=== PATIENT | female | born 1955 | race Caucasian/White ===

== ENCOUNTER 2016-07-15 11:21 | Outpatient (CLI) | payer OTHER | END 2016-07-15 11:22 | disposition home or self-care (01) | DX: M25.561 Pain in right knee (principal) ==

== ENCOUNTER 2016-08-23 09:43 | Outpatient (CLI) | payer OTHER | END 2016-08-23 09:44 | disposition home or self-care (01) | DX: E11.65 Type 2 diabetes mellitus with hyperglycemia (principal); Z79.4 Long term (current) use of insulin; I10 Essential (primary) hypertension; E78.5 Hyperlipidemia, unspecified ==

== ENCOUNTER 2016-11-08 09:15 | Outpatient (CLI) | payer OTHER ==
[2016-11-08 21:10] LABS: HEMOGLOBIN A1C 0.93 g/dL
== END 2016-11-08 09:16 | disposition home or self-care (01) ==
LOC: LAB.S 09:15
PROVIDERS: ATTEND Nurse Practitioner
DX: E11.65 Type 2 diabetes mellitus with hyperglycemia (principal); Z79.4 Long term (current) use of insulin
CPT/HCPCS: 36415; 83036

== ENCOUNTER 2017-03-28 15:12 | Outpatient (CLI) | payer OTHER ==
[2017-03-29 12:31] LABS: HEMOGLOBIN A1C 0.73 g/dL
== END 2017-03-28 15:13 | disposition home or self-care (01) ==
LOC: LAB.S 15:12
PROVIDERS: ATTEND Nurse Practitioner Family
DX: E11.9 Type 2 diabetes mellitus without complications (principal)
CPT/HCPCS: 36415; 83036

== ENCOUNTER 2017-06-15 13:49 | Outpatient (CLI) | payer OTHER ==
--- NOTE | 2017-06-16 19:27 | XRAY Report ---
DATE OF SERVICE: 06/15/2017 TWO VIEW CHEST: 06/15/2017. CLINICAL INDICATION: Cough. FINDINGS: Frontal and lateral views of the chest demonstrate a normal cardiac silhouette. The lungs are clear. No effusion or pneumothorax is present. IMPRESSION: Normal chest. TD: 06/16/2017 09:58
== END 2017-06-15 13:50 | disposition home or self-care (01) ==
LOC: DI.S 13:49
PROVIDERS: ATTEND Nurse Practitioner Family
DX: R05 Cough (principal)
CPT/HCPCS: 71020

== ENCOUNTER 2017-07-07 08:30 | Outpatient (CLI) | payer OTHER ==
[2017-07-07 17:47] LABS: BILIRUBIN,URINE NEGATIVE (NEGATIVE); GLUCOSE, URINE (UA) NEGATIVE (NEGATIVE); KETONES,URINE (UA) NEGATIVE (NEGATIVE); LEUKOCYTE ESTERASE, URINE MODERATE (NEGATIVE); NITRITE,URINE NEGATIVE (NEGATIVE); OCCULT BLOOD,URINE MODERATE (NEGATIVE); PROTEIN,URINE NEGATIVE (NEGATIVE); UROBILINOGEN,URINE 0.2 (NORMAL) E.U./dL (NORMAL)
[2017-07-07 17:54] LABS: BACTERIA,URINE Rare /HPF (None Seen); CLARITY,URINE HAZY (CLEAR); RBC,URINE 0-5 /HPF (0-5); SQUAMOUS EPITHELIAL CELL,UR RARE Squamous (<= Few)
== END 2017-07-07 08:31 | disposition home or self-care (01) ==
LOC: LAB.R 08:30
PROVIDERS: ATTEND Nurse Practitioner Family
DX: R32 Unspecified urinary incontinence (principal)
CPT/HCPCS: 81001; 87077; 87086

== ENCOUNTER 2017-08-03 08:37 | Outpatient (CLI) | payer OTHER ==
--- NOTE | 2017-08-05 15:18 | Mammography Report ---
DIGITAL SCREENING MAMMOGRAM: 08/03/2017 CLINICAL INDICATION: A 62-year-old, for screening. COMPARISON: The patient reports having had previous mammograms many years ago in [place]. If records in your office indicate where they were performed, we would be happy to try to obtain them for direct comparison. Otherwise this will serve as a new baseline. TECHNIQUE: Routine CC and MLO projections were obtained of the breasts. FINDINGS: The breasts demonstrate fatty replacement bilaterally. A few punctate, typically benign calcifications are present. No suspicious masses, clustered microcalcifications, or regions of architectural distortion are identified. IMPRESSION: BENIGN FINDINGS. RECOMMENDATION: ROUTINE ANNUAL SCREENING UNLESS OTHERWISE CLINICALLY INDICATED. BIRADS CATEGORY 2-BENIGN FINDINGS. STANDARD QUALIFYING STATEMENTS: 1. This examination was reviewed with the aid of Computer-Aided Detection (CAD). 2. A negative or benign imaging report should not delay biopsy if clinically suspicious findings are present. Consider surgical consultation if warranted. More than 5% of cancers are not identified by imaging. 3. Dense breasts may obscure an underlying neoplasm. TD: 08/05/2017 15:17
== END 2017-08-03 08:38 | disposition home or self-care (01) ==
LOC: DI.S 08:37
PROVIDERS: ATTEND Family Medicine
DX: Z12.31 Encounter for screening mammogram for malignant neoplasm of breast (principal)
CPT/HCPCS: 77067

== ENCOUNTER 2017-08-22 09:13 | Outpatient (CLI) | payer OTHER ==
[2017-08-22 18:04] LABS: CALCIUM 8.7 mg/dL (8.5-10.3); CREATININE 0.8 mg/dL (0.4-1.0)
[2017-08-22 18:12] LABS: CREATININE,URINE 67.2 mg/dL; MICROALBUM/CREATININE RATIO,UR 16.4 ug/mg (<30.0); MICROALBUMIN,URINE 1.1 mg/dL (0-300.0)
[2017-08-22 18:18] LABS: THYROID STIMULATING HORMONE 1.86 uIU/mL (0.34-5.60)
[2017-08-22 18:51] LABS: HB2 TOTAL 11.4 g/dL; HEMOGLOBIN A1C 0.74 g/dL; HEMOGLOBIN A1C % 8.1 % (4.6-6.2)
== END 2017-08-22 09:14 | disposition home or self-care (01) ==
LOC: LAB.S 09:13
PROVIDERS: ATTEND Internal Medicine Endocrinology, Diabetes & Metabolism
DX: E11.65 Type 2 diabetes mellitus with hyperglycemia (principal); Z79.4 Long term (current) use of insulin; R20.2 Paresthesia of skin
CPT/HCPCS: 36415; 80048; 82043; 82570; 82607; 83036; 84443